=== PATIENT | male | born 1970 | race Caucasian/White ===

== ENCOUNTER 2017-02-26 12:37 | Outpatient (CLI) | payer BC ==
[2015-11-15 22:53] VITALS: BP 143/87
--- NOTE | 2017-02-26 21:45 | Diagnostic Imaging Report ---
SOLEDAD MARKHAM - PANCHITO [facility] [address] [facility].[address] [id number] Report Submission Date: February 26, 2017 2:42:11 PM CDT Patient Study Name: RODNEY ANTONIO Date: February 26, 2017 12:49:31 PM CDT Modality Type: US Gender: M Description: US THYROID SOFT TISS HEAD/NCK : 74 Institution: [facility] Physician: SOLEDAD MARKHAM - PANCHITO Ultrasound thyroid History: Right thyroid lump Findings: The right thyroid lobe measures 5.5 x 2.8 x 3.7 cm. It contains a heterogeneous cystic and solid mass with multiple internal calcifications, measuring 4 x 2.5 x 2.9 cm. The thyroid isthmus is normal. The left thyroid lobe measures 5.6 x 1.6 x 2.2 cm and contains a predominantly solid and slightly hypoechoic 2.8 x 1.3 x 2 cm nodule. Impression: Indeterminate bilateral thyroid nodules. Recommend ultrasound guided biopsy of both lesions. Electronically signed on February 26, 2017 2:42:11 PM CDT by: Mohinder CHUNG
== END 2017-02-26 12:40 ==
LOC: RAD 12:37
PROVIDERS: ATTEND Family Medicine
DX: E04.2 Nontoxic multinodular goiter (principal)
CPT/HCPCS: 76536

== ENCOUNTER 2018-11-15 15:13 | Emergency (ER) | payer BC, OTHER ==
--- NOTE | 2018-11-15 15:34 | ED Physician Documentation ---
General Adult - HISTORIAN Historian: patient - HPI Stated Complaint: right lower leg pain and swelling Chief Complaint: Lower Extremity Problem Onset: days ago Timing: still present Severity: mild Further Comments: yes (he states two days ago he started to notice mild pain getting in and out of the truck when he was at work but today he notices significant swelling and he has pain in mid calf like a muscle cramp when he flexs foot. He denies any injury. No fever. He has not taken any OTC meds . He denies any history of clot or PE) Last known Well Code/Unknown Code: Unknown - ROS CONST: no problems, chills CVS/RESP: none GI/: none MS/SKIN/LYMPH: calf pain, leg swelling NEURO/PSYCH: denies: headache - PAST HX Past History: hypertension (does not take his meds ) Immunizations: UTD Allergies/Adverse Reactions: Allergies Allergy/AdvReac Type Severity Reaction Status Date / Time No Known Allergies Allergy Verified 11/15/18 15:38 Home Medications: Ambulatory Orders Medication Instructions Recorded NK 11/15/15 - SOCIAL HX Smoking History: non-smoker Alcohol Use: none Drug Use: none - FAMILY HX Family History: No - VITAL SIGNS Vital Signs: Vital Signs Temp Pulse Resp BP Pulse Ox 143/87 11/15/15 22:50 - REVIEWED ASSESSMENTS Nursing Assessment Reviewed: Yes Vitals Reviewed: Yes Progress - Progress Progress: 1810: labs and results explained and plan. He is agreeable - he is confident he can get an appt with PCP tomorrow and U/S is scheduled here for 0900 he is agreeable to this as well. Nurse will explain Lovenox injections at home. He and are comfortable with this as well DG General Adult Physical Exam - PHYSICAL EXAM GENERAL APPEARANCE: no distress EENT: eye inspection normal, no signs of dehydration NECK: normal inspection RESPIRATORY: no resp distress, chest non-tender, breath sounds normal CVS: reg rate & rhythm, heart sounds normal ABDOMEN: soft, no distension BACK: normal inspection, no CVA tenderness SKIN: warm/dry, other (right lower leg with redness from mid lower leg to ankle pain with foot flexion. mildly warm to touch. pulses + sensation + FROM + cap refill + ) EXTREMITIES: non-tender, normal range of motion, no evidence of injury NEURO: oriented X3 Discharge Clincal Impression: DVT (deep venous thrombosis) Qualifiers: DVT location: lower extremity Affected thrombotic vein of extremity: other lower extremity vein Chronicity: acute Laterality: right Qualified Code(s): I82.491 - Acute embolism and thrombosis of other specified deep vein of right lower extremity Referrals: Lamont Painting MD [Primary Care Provider] - 2 Days Comments: 1. Lovenox 130 mg Sub Q twice per day until follow up with Dr Barajas TOMORROW 2. U/S ordered for tomorrow 3. Return to ER for any concerns right calf 18 in left calf 16.5 in Condition: Stable Disposition: 01 HOME, SELF-CARE Decision to Admit: NO Date of Decison to Admit: 11/15/18 Decision Time: 18:06
[2018-11-15] MEDS ORDERED: 0.9 % SODIUM CHLORIDE 1,000 ML IV ONE (16:03)
[2018-11-15 17:24] LABS: MEAN CORPUSCULAR HEMOGLOBIN 29.1 pg (28.0-34.0)
[2018-11-15 17:25] LABS: BASOPHILS % 0.6 (0.0-1.5); EOSINOPHILS % 3.2 % (0.0-6.8); MONOCYTES % 8.6 % (0.0-11.0); NEUTROPHILS # 7.3 # k/uL (1.4-7.7)
[2018-11-15 17:27] LABS: eGFR (Non-African) > 60
[2018-11-15] MEDS ORDERED: ENOXAPARIN SODIUM 120 MG/0.8 ML DISP.SYRIN SQ ONE ×2 (17:58→18:01)
[2018-11-15] MEDS ORDERED: ENOXAPARIN SODIUM 30 MG/0.3 ML DISP.SYRIN SQ ONE (18:11)
[2018-11-15] MEDS ORDERED: ENOXAPARIN SODIUM 100 MG/ML DISP.SYRIN SQ ONE (18:11)
[2018-11-15 19:11] VITALS: BP 140/92
--- NOTE | 2018-11-16 10:45 | Diagnostic Imaging Report ---
DAYTON PHELAN [facility] [address] [facility].[address] [id number] Report Submission Date: Nov 16, 2018 10:41:24 AM TRADE SHOW SPECIALIST Patient Study Name: RODNEY ANTONIO Date: Nov 16, 2018 8:31:09 AM TRADE SHOW SPECIALIST Modality Type: US Gender: M Description: US EXTREMITY VEINS UNILAT : 74 Institution: [facility] Physician: DAYTON PHELAN Examination: Ultrasound right vein History: Swelling and elevated d dimer Findings: Sonographic evaluation of the right lower extremity venous system from the groin to the popliteal fossa inclusive. Filling defects identified within the distal superficial femoral vein extending into the popliteal vein. Flow along the periphery. Remaining thigh vasculature demonstrates compressibility without luminal filling defect. Normal waveforms and response to augmentation. No popliteal region fluid collection. Vasculature within the calf appears to demonstrates central occlusion and appears noncompressible. Impression: Partially occlusive thrombus within the distal superficial femoral vein extending into the popliteal vein. Calf vasculature appears to be completely included. Discussed findings within MALATHI Leal at 1040 hours on 16 November 2018 CDT Electronically signed on Nov 16, 2018 10:41:24 AM TRADE SHOW SPECIALIST by: Javier CHUNG
== END 2018-11-15 18:45 | disposition home or self-care (01) ==
LOC: ED 15:13
DX: I82.411 Acute embolism and thrombosis of right femoral vein (principal); I82.431 Acute embolism and thrombosis of right popliteal vein
CPT/HCPCS: 36415; 80053; 85025; 85379; 96372; 99283; 99284; J1650; J7030; 93971; S1016

== ENCOUNTER 2018-11-16 08:42 | Outpatient (CLI) | payer OTHER ==
[2018-11-15 19:11] VITALS: BP 140/92
--- NOTE | 2018-11-25 08:57 | Diagnostic Imaging Report ---
DAYTON PHELAN [facility] [address] [facility].[address] [address] Report Submission Date: Nov 16, 2018 10:41:24 AM MARINE ERECTOR Patient Study Name: RODNEY ANTONIO Date: Nov 16, 2018 8:31:09 AM MARINE ERECTOR Modality Type: US Gender: M Description: US EXTREMITY VEINS UNILAT : 74 Institution: [facility] Physician: DAYTON PHELAN Examination: Ultrasound right vein History: Swelling and elevated d dimer Findings: Sonographic evaluation of the right lower extremity venous system from the groin to the popliteal fossa inclusive. Filling defects identified within the distal superficial femoral vein extending into the popliteal vein. Flow along the periphery. Remaining thigh vasculature demonstrates compressibility without luminal filling defect. Normal waveforms and response to augmentation. No popliteal region fluid collection. Vasculature within the calf appears to demonstrates central occlusion and appears noncompressible. Impression: Partially occlusive thrombus within the distal superficial femoral vein extending into the popliteal vein. Calf vasculature appears to be completely included. Discussed findings within MALATHI Leal at 1040 hours on 16 November 2018 CDT Electronically signed on Nov 16, 2018 10:41:24 AM MARINE ERECTOR by: Javier CHUNG
== END 2018-11-16 08:43 ==
LOC: RAD 08:42
PROVIDERS: ATTEND Nurse Practitioner Family
DX: I82.411 Acute embolism and thrombosis of right femoral vein (principal); I82.431 Acute embolism and thrombosis of right popliteal vein
CPT/HCPCS: 93971